=== PATIENT | male | born 1980 | race African-American/Black ===

== ENCOUNTER 2022-06-08 15:45 | Emergency (ER) | payer MEDICAID ==
[~2022-06-08] VITALS: Ht 188 cm; Wt 91.0 kg
[2022-06-08 16:17] VITALS: BP 137/85
== END 2022-06-08 20:45 | disposition left against medical advice (07) ==
LOC: ER 15:45
DX: Z53.21 Procedure and treatment not carried out due to patient leaving prior to being seen by health care provider (principal)